=== PATIENT | male | born 1985 | race Caucasian/White ===

== ENCOUNTER 2018-02-20 02:41 | Outpatient (CLI) | payer MEDICAID, SELFPAY ==
[2018-02-21 12:21] LABS: HIV-1/2 Ag & Ab Screen Negative (NEGAT)
== END 2018-02-20 03:01 ==
PROVIDERS: PCP Family Medicine; Visit Provider Family Medicine
DX: Z20.2 Contact with and (suspected) exposure to infections with a predominantly sexual mode of transmission (principal); Z11.4 Encounter for screening for human immunodeficiency virus [HIV]
CPT/HCPCS: 36415; 87389

== ENCOUNTER 2021-04-01 14:47 | Outpatient (REF) | payer MEDICAID, SELFPAY ==
[2021-04-03 01:15] LABS: COVID-19 RT-PCR UVMMC Result Negative (Negative)
== END 2021-04-01 14:48 | disposition home or self-care (01) ==
LOC: NCHCN 14:47
PROVIDERS: PCP Family Medicine; Visit Provider Family Medicine
DX: Z20.822 Contact with and (suspected) exposure to COVID-19 (principal); R09.89 Other specified symptoms and signs involving the circulatory and respiratory systems
CPT/HCPCS: U0003

== ENCOUNTER 2021-08-10 19:22 | Outpatient (REF) | payer MEDICAID, SELFPAY | END 2021-08-10 19:23 | disposition home or self-care (01) | LOC: LBN 19:22 | PROVIDERS: PCP Family Medicine; Visit Provider Nurse Practitioner Family | DX: S61.202A Unspecified open wound of right middle finger without damage to nail, initial encounter (principal); X58.XXXA Exposure to other specified factors, initial encounter | CPT/HCPCS: 87077; 87070; 87186; 87205 ==

== ENCOUNTER 2025-03-26 18:36 | Outpatient (REF) | payer MEDICAID, SELFPAY ==
[2025-03-30 11:42] LABS: Chlamydia Result Negative (Negative); GC Result Negative (Negative)
== END 2025-03-26 18:37 | disposition home or self-care (01) ==
LOC: LBN 18:36
PROVIDERS: PCP Family Medicine; Visit Provider Family Medicine
DX: Z11.59 Encounter for screening for other viral diseases (principal); Z11.3 Encounter for screening for infections with a predominantly sexual mode of transmission
CPT/HCPCS: 87491; 87591